=== PATIENT | male | born 1985 | race Caucasian/White ===

== ENCOUNTER 2017-07-19 13:27 | Emergency (ER) | payer BC, SELFPAY ==
[2017-07-19 13:40] VITALS: BMI 28.4
[2017-07-19 13:41] VITALS: BP 132/72; PULSE 93; RESP 18; TEMP 37.3; O2SAT 99; BMI 28.4
--- NOTE | 2017-07-19 13:45 | HMH.EDUTC ---
[facility] [place] Impression: Strep [place] Disposition: Home, Self-Care Condition on Discharge: Good Instructions: Strep Throat, DI for Strep Throat Additional Instructions: * Monitor Temp. Tylenol and/or Ibuprofen as needed. ER if fever is no less than 101 despite alternating Tylenol and Ibuprofen * Encourage fluids, water, Gatorade, powerade, pedialyte if /toddler/or child * Warm salt water gargles for throat irritation *Warm fluids *Sore throat lozenges *Sleep elevated *humidifier or vaporizer Lots of rest Increase fluids, water, Gatorade, powerade Follow up IMMEDIATELY for new or worsening of symptoms OR no noticeable improvement over the next 48-72 hours. 911 immediately for any life threatening symptoms such as chest pain or difficulty breathing Prescriptions: Azithromycin [Z-Patrick 250mg Tab] 250 mg PO UD DOSE PK #6 tab Azithromycin [Zithromax 250mg tab] 250 mg PO DIRECTED #6 tab Referrals: Shravan Sebastian MD [Primary Care Provider] - Forms: Work/School Release Time of Disposition: 13:50 Medical Decision Making - Medical Records Medical records reviewed: Yes: I reviewed the patient's medical records. Vital Signs: 07/19/17 13:41 Temperature 99.1 F Temperature Source Temporal Artery Scan Pulse Rate [Right Brachial] 93 H Respiratory Rate 18 Blood Pressure [Right Arm] 132/72 Blood Pressure Mean [Right Arm] 92 Blood Pressure Source [Right Arm] Automatic Cuff Blood Pressure Position [Right Arm] Sitting 02 Sat by Pulse Oximetry 99 Oxygen Delivery Method Room Air - Lab Data Lab results reviewed: Yes: I reviewed the patient's lab results. - Horacio Inquiry Pt receiving controlled substance: No Horacio was queried for this patient: No [facility] [place] - General Stated complaint: strep Throat Mode of Arrival: Family Vehicle Source of Information: Patient Limitations: No Limitations Description of Symptoms (Recalled from Triage Doc. by RN): C/O SORE THROAT HEENT Symptoms (Recalled from RN notes): Yes (SORE THROAT) Resp Symptoms (Recalled from RN notes): No Skin Symptoms (Recalled from RN notes): No MS Symptoms (Recalled from RN notes): No Functional Status (Recalled from RN notes): N/A - History of Present Illness Provider Complaint: Patient states that his son recently had strep throat and today he noticed that his throat was hurting and felt raw and irritated and felt like he had a fever State that he had to bring child and get checked so he was going to get checked too - Related Data Previous Rx's Medication Instructions Recorded Azithromycin [Z-Patrick 250mg Tab] 250 mg PO UD DOSE PK #6 tab 07/19/17 Azithromycin [Zithromax 250mg 250 mg PO DIRECTED #6 tab 07/19/17 tab] Allergies Allergy/AdvReac Type Severity Reaction Status Date / Time Penicillins [PENICILLINS] Allergy Unknown Verified 07/19/17 13:43 - Worker's Comp Is this a Worker's Comp case?: No H History I have reviewed the patient's past medical history: Yes - Social History Alcohol Intake: never - Psychiatric History Expresses thoughts of harming self/others: None Suicide Plan Description: No Plan ROS Obtained: Yes All systems reviewed & no additional complaints - ENT Ears, Nose, Mouth, and Throat: Reports sore throat Physical Exam - General General appearance: alert, in no apparent distress - Expanded ENT Exam Throat exam: Present: tonsillar erythema, tonsillar exudate - Respiratory Respiratory exam: Present: normal lung sounds bilaterally. Absent: respiratory distress - Cardiovascular Cardiovascular exam: Present: regular rate, normal rhythm. Absent: JVD - Abdominal Exam Abdominal exam: Present: soft, normal bowel sounds. Absent: distention, tenderness, guarding - Neurological Exam Neurological exam: Present: alert, oriented X3
--- NOTE | 2017-07-19 13:50 | ED_ITS ---
[facility] [place] Clinical Impression: Strep throat Disposition: Home, Self-Care Condition on Discharge: Good Instructions: Strep Throat, DI for Strep Throat Additional Instructions: * Monitor Temp. Tylenol and/or Ibuprofen as needed. ER if fever is no less than 101 despite alternating Tylenol and Ibuprofen * Encourage fluids, water, Gatorade, powerade, pedialyte if /toddler/or child * Warm salt water gargles for throat irritation *Warm fluids *Sore throat lozenges *Sleep elevated *humidifier or vaporizer Lots of rest Increase fluids, water, Gatorade, powerade Follow up IMMEDIATELY for new or worsening of symptoms OR no noticeable improvement over the next 48-72 hours. 911 immediately for any life threatening symptoms such as chest pain or difficulty breathing Prescriptions: Azithromycin [Z-Patrick 250mg Tab] 250 mg PO UD DOSE PK #6 tab Azithromycin [Zithromax 250mg tab] 250 mg PO DIRECTED #6 tab Referrals: Shravan Sebastian MD [Primary Care Provider] - Forms: Work/School Release Time of Disposition: 13:50 Medical Decision Making - Medical Records Medical records reviewed: Yes: I reviewed the patient's medical records. Vital Signs: 07/19/17 13:41 Temperature 99.1 F Temperature Source Temporal Artery Scan Pulse Rate [Right Brachial] 93 H Respiratory Rate 18 Blood Pressure [Right Arm] 132/72 Blood Pressure Mean [Right Arm] 92 Blood Pressure Source [Right Arm] Automatic Cuff Blood Pressure Position [Right Arm] Sitting 02 Sat by Pulse Oximetry 99 Oxygen Delivery Method Room Air - Lab Data Lab results reviewed: Yes: I reviewed the patient's lab results. - Horacio Inquiry Pt receiving controlled substance: No Horacio was queried for this patient: No [facility] [place]PI - General Stated complaint: strep Throat Mode of Arrival: Family Vehicle Source of Information: Patient Limitations: No Limitations Description of Symptoms (Recalled from Triage Doc. by RN): C/O SORE THROAT HEENT Symptoms (Recalled from RN notes): Yes (SORE THROAT) Resp Symptoms (Recalled from RN notes): No Skin Symptoms (Recalled from RN notes): No MS Symptoms (Recalled from RN notes): No Functional Status (Recalled from RN notes): N/A - History of Present Illness Provider Complaint: Patient states that his son recently had strep throat and today he noticed that his throat was hurting and felt raw and irritated and felt like he had a fever State that he had to bring child and get checked so he was going to get checked too - Related Data Previous Rx's Medication Instructions Recorded Azithromycin [Z-Patrick 250mg Tab] 250 mg PO UD DOSE PK #6 tab 07/19/17 Azithromycin [Zithromax 250mg 250 mg PO DIRECTED #6 tab 07/19/17 tab] Allergies Allergy/AdvReac Type Severity Reaction Status Date / Time Penicillins [PENICILLINS] Allergy Unknown Verified 07/19/17 13:43 - Worker's Comp Is this a Worker's Comp case?: No [facility] History I have reviewed the patient's past medical history: Yes - Social History Alcohol Intake: never - Psychiatric History Expresses thoughts of harming self/others: None Suicide Plan Description: No Plan ROS Obtained: Yes All systems reviewed & no additional complaints - ENT Ears, Nose, Mouth, and Throat: Reports sore throat Physical Exam - General General appearance: alert, in n
[2017-07-19 13:59] VITALS: BP 132/72; PULSE 93; RESP 18; TEMP 37.3; O2SAT 99
[2017-07-20 08:28] LABS: UTC Strep Screen (Rapid) Positive (Negative)
== END 2017-07-19 14:00 | disposition home or self-care (01) ==
PROVIDERS: Emergency Provider Nurse Practitioner; Family Provider Family Medicine; PCP Internal Medicine Adolescent Medicine
DX: J02.0 Streptococcal pharyngitis (principal); Z88.0 Allergy status to penicillin
CPT/HCPCS: 87880; 99202

== ENCOUNTER 2017-09-18 15:30 | Outpatient (RCR) | payer BC, SELFPAY ==
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
--- NOTE | 2017-08-26 11:36 | HMH.RHREAS ---
Rehab Reassessment Rehab OP Re-assessment Start: 08/26/17 11:29 Freq: Status: Active Protocol: Document 08/26/17 11:29 TEDDYCHARLES (Rec: 08/26/17 11:35 [email or web address] [id number]) Electronically Signed By Mundo Herring, PT 08/26/17 11:29 Rehab Re-assessment Subjective Subjective Pt reports improved neck and LBP @ 2-3/10 on VAS, and feels 40-50% better overall since I EVAL Objective Objective Notes AROM: C-SPINE FLX 0-50, EXT 0- 50, R SB 0-45, L SB 0-45, B ROT 0-60 L-SPINE FLX 0-90, EXT 0-40, B SB 0-35 MMT: B LE WFL, B UE WFL TTP: B UT 05/14, B LUMBAR PARA Assessment Progress Assessment Progressing as Expected Assessment Notes PT W/IMPROVED ROM, STRENGTH, AND TTP Patient goals met STG'S 10/14 LTG'S 08/16 Goals Not Met LTG'S 08/16 Plan Plan PT TO CONT. W/SKILLED P.T. TO MAKE FURTHER IMPROVEMENTS IN ROM, STRENGTH, AND TTP TO ALLOW FOR OPTIMAL FUNCTION. Frequency of Therapy 2X/WK Duration of therapy 2-4 WKS Time and Billing Re-Eval Time 15 Re-Eval Billing Units 1 PHYSICIAN CERTIFICATION: I certify the specified therapy services for Jim Ackerman are required, authorized, and reviewed every 30 days.
== END 2017-09-18 15:31 | disposition home or self-care (01) ==
LOC: PT 15:30
PROVIDERS: Family Provider Family Medicine; PCP Internal Medicine Adolescent Medicine; Visit Provider Nurse Practitioner Family
DX: M54.2 Cervicalgia (principal); M54.5 Low back pain
CPT/HCPCS: 97010; 97014; 97035; 97110; 97140; 97164; G0283

== ENCOUNTER → 2019-08-24 15:07 | Outpatient (CLI) | payer BC, SELFPAY ==
[2019-08-24 15:34] LABS: Basophils % 0.6 % (0.1-2.0); Eosinophils # 0.1 K/mm3 (0.0-0.4); Eosinophils % 0.8 % (0.1-12.0); Hematocrit 52.4 % (42.0-52.0); Hemoglobin 17.7 g/dL (14.1-18.0); Lymphocytes % 28.2 % (10-50); Mean Corpuscular HGB Conc 33.8 g/dL (31.8-35.4); Mean Corpuscular Hemoglobin 29.7 pg (27.0-31.2); Mean Corpuscular Volume 87.8 fl (80-94); Mean Platelet Volume 8.2 fl (7.4-10.4); Monocytes # 0.5 K/mm3 (0.1-1.0); Monocytes % 7.3 % (1.7-9.3); Neutrophils # 4.6 K/mm3 (1.8-7.8); Neutrophils % 63.2 % (37.0-80.0); Platelet Count 255 K/mm3 (142-424); Red Blood Count 5.97 M/mm3 (4.60-6.20); Red Cell Distribution Width 13.2 % (11.5-17.5); White Blood Count 7.2 K/mm3 (4.8-10.8)
[2019-08-24 17:05] LABS: Alanine Aminotransferase 33 U/L (12-78); Albumin Level 5.2 g/dl (3.5-5.0); Albumin/Globulin Ratio 1.7 (1.1-1.8); Alkaline Phosphatase 45 U/L (38-126); Amylase 49 U/L (30-110); Aspartate Amino Transferase 36 U/L (17-59); Bilirubin,Total 1.4 mg/dl (0.2-1.3); Blood Urea Nitrogen 19 mg/dl (9-20); Calcium 9.8 mg/dl (8.4-10.2); Carbon Dioxide 30 mmol/L (22.0-30.0); Chloride 94 mmol/L (98-107); Estimated Glomerular Filt Rate 78 ml/min (>60); GFR (African American) 94 ML/MIN (>60); Glucose 119 mg/dl (74-100); Lipase 66 U/L (23-300); Sodium 136 mmol/L (136-145); Total Protein,Serum 8.2 g/dl (6.3-8.2)
== END ==
PROVIDERS: Visit Provider Nurse Practitioner Family
DX: R10.84 Generalized abdominal pain (principal)
CPT/HCPCS: 36415; 80053; 82150; 83690; 85025

== ENCOUNTER → 2019-08-27 10:52 | Outpatient (CLI) | payer BC, SELFPAY ==
[2019-08-27 11:28] LABS: Adenovirus F 40/41, stool Not Detected (NotDetected); Astrovirus Not Detected (NotDetected); Campylobacter Not Detected (NotDetected); Clostridium Difficile A/B, PCR Not Detected (NotDetected); Cryptosporidium Not Detected (NotDetected); Cyclospora Cayetanesis Not Detected (NotDetected); Entamoeba histolytica Not Detected (NotDetected); Enteroaggregative E coli Not Detected (NotDetected); Enteropathogenic E coli Not Detected (NotDetected); Enterotoxigenic E coli Not Detected (NotDetected); Giardia lamblia Not Detected (NotDetected); Norovirus Not Detected (NotDetected); Plesimonas Shigalloides, PCR Not Detected (NotDetected); Rotavirus A Not Detected (NotDetected); Salmonella, PCR Not Detected (NotDetected); Sapovirus Not Detected (NotDetected); Shiga-like toxin E coli Not Detected (NotDetected); Shigella Enterovasive E coli Not Detected (NotDetected); Vibrio Cholerae Not Detected (NotDetected); Vibrio, PCR Not Detected (NotDetected); Yersinia Entercolitica, PCR Not Detected (NotDetected)
== END ==
PROVIDERS: Visit Provider Internal Medicine Adolescent Medicine
DX: K52.9 Noninfective gastroenteritis and colitis, unspecified (principal)
CPT/HCPCS: 87507

== ENCOUNTER → 2021-07-01 09:52 | Outpatient (CLI) | payer BC, SELFPAY ==
--- NOTE | 2021-07-01 09:58 | XR_ITS ---
FINAL REPORT CLINICAL HISTORY: neck pain FINDINGS: CERVICAL SPINE 5 views were obtained. There is no acute fracture. Alignment is normal. The disc spaces are preserved. IMPRESSION: No acute process. Reviewed, Interpreted and Dictated by Matthew Phillips MD Transcribed by Zenon Motley Authenticated by Matthew Phillips MD on 07/01/2021 11:17:09 AM [facility]
--- NOTE | 2021-07-01 10:00 | XR_ITS ---
FINAL REPORT CLINICAL HISTORY: knots in the top of the head FINDINGS: SKULL LESS THAN 4 VIEWS Four views were obtained. There is no acute fracture or dislocation. Bony alignment is normal. The visualized paranasal sinuses are clear. IMPRESSION: No acute bony abnormality. Reviewed, Interpreted and Dictated by Matthew Phillips MD Transcribed by Zenon Motley Authenticated by Matthew Phillips MD on 07/01/2021 11:17:26 AM [facility]
[2021-07-01 10:56] LABS: Basophils % 0.5 % (0.1-2.0); Eosinophils # 0.1 K/mm3 (0.0-0.4); Eosinophils % 1.3 % (0.1-12.0); Hemoglobin 16.1 g/dL (14.1-18.0); Lymphocytes # 1.7 K/mm3 (0.7-4.5); Lymphocytes % 34.1 % (10-50); Mean Corpuscular HGB Conc 34.9 g/dL (31.8-35.4); Mean Corpuscular Hemoglobin 31.1 pg (27.0-31.2); Mean Platelet Volume 7.8 fl (7.4-10.4); Monocytes # 0.3 K/mm3 (0.1-1.0); Monocytes % 5.4 % (1.7-9.3); Neutrophils % 58.7 % (37.0-80.0); Platelet Count 192 K/mm3 (142-424); Red Blood Count 5.16 M/mm3 (4.60-6.20); Red Cell Distribution Width 13.3 % (11.5-17.5); White Blood Count 5.1 K/mm3 (4.8-10.8)
[2021-07-01 11:31] LABS: Erythrocyte Sedimentation Rate 11 mm/hr (0-15)
[2021-07-01 12:03] LABS: Alanine Aminotransferase 46 U/L (12-78); Albumin Level 4.6 g/dl (3.5-5.0); Albumin/Globulin Ratio 2.1 (1.1-1.8); Alkaline Phosphatase 48 U/L (38-126); Anion Gap 10.2 mEq/L (5-15); Aspartate Amino Transferase 40 U/L (17-59); Bilirubin,Total 0.7 mg/dl (0.2-1.3); Blood Urea Nitrogen 14 mg/dl (9-20); Calcium 8.9 mg/dl (8.4-10.2); Carbon Dioxide 31 mmol/L (22.0-30.0); Chloride 102 mmol/L (98-107); Estimated Glomerular Filt Rate 97 ml/min (>60); GFR (African American) 117 ML/MIN (>60); Globulin 2.2 g/dL (1.3-3.2); Glucose 104 mg/dl (74-100); Potassium 4.2 mmoL/L (3.5-5.1); Sodium 139 mmol/L (136-145); Total Protein,Serum 6.8 g/dl (6.3-8.2)
[2021-08-11 20:54] LABS: Antinuclear Antibodies (ANA) Negative
== END ==
LOC: LAB 09:53
PROVIDERS: PCP Family Medicine; Visit Provider Specialist
DX: G44.89 Other headache syndrome (principal); R21 Rash and other nonspecific skin eruption; L72.9 Follicular cyst of the skin and subcutaneous tissue, unspecified; R80.9 Proteinuria, unspecified
CPT/HCPCS: 36415; 70250; 72050; 80053; 85025; 85651; 86038; 86225; 86235; 86618

== ENCOUNTER → 2021-07-13 07:58 | Outpatient (CLI) | payer BC, SELFPAY ==
--- NOTE | 2021-07-13 07:59 | MR_ITS ---
FINAL REPORT CLINICAL HISTORY: atypical headache. pt states that the top of his head is sensitive. painful to touch. nki. FINDINGS: Multiplanar MR imaging of the brain was performed without and with contrast. There is artifact from presumed dental hardware which obscures some detail anteriorly. There is no evidence of intracranial hemorrhage or mass. No abnormal extra-axial fluid collection is seen. The ventricular size is within normal limits. There is no evidence of shift of the midline structures. The posterior fossa and brainstem have an unremarkable appearance. Portions of diffusion weighted imaging are nondiagnostic. Remaining diffusion weighting imaging demonstrates no abnormal restriction. No abnormal contrast enhancement is seen. Normal major vessel vascular flow voids are noted. IMPRESSION: Portions of diffusion weighted imaging is nondiagnostic, otherwise no acute intracranial abnormality. Reviewed, Interpreted and Dictated by Abraham Okeefe III, MD Transcribed by Zenia Olsen Authenticated by Abraham Okeefe III, MD on 07/15/2021 08:57:57 AM [facility]
== END ==
PROVIDERS: PCP Family Medicine; Visit Provider Specialist
DX: G44.89 Other headache syndrome (principal)
CPT/HCPCS: 70553; 94762; A9576

== ENCOUNTER → 2021-07-31 11:44 | Outpatient (CLI) | payer BC, SELFPAY | PROVIDERS: PCP Family Medicine; Visit Provider Nurse Practitioner Family | DX: G47.34 Idiopathic sleep related nonobstructive alveolar hypoventilation (principal); R51.9 Headache, unspecified | CPT/HCPCS: G0399 ==

== ENCOUNTER 2021-09-13 16:00 | Outpatient (RCR) | payer BC, SELFPAY ==
--- NOTE | 2021-07-31 09:08 | HMH.PTOPEV ---
PT Outpatient Evaluation Rehab PT Outpatient Evaluation Start: 07/31/21 08:12 Freq: Status: Active Protocol: Document 07/31/21 08:12 PADMINI (Rec: 07/31/21 09:07 PADMINI [id number]) Electronically Signed By Tapan Sierra, MAGO 07/31/21 08:12 Outpatient Therapy Subjective History Subjective History This is the initial Physical Therapy evaluation for Jim Ackerman. Pt is a 36 y/o male referred to PT for c/o scalp pain and dysthesia. Pt reports long history of neck and low back pain but reports pain in crown of head began ~ 6-7 months ago. Pt reports insidious onset but did state he noticed the pressure after having COVID. Pt reprots he has constant pressure in crown of head but can increase into pain . Chief Complaint Pain,Other Symptom Type Ache,Other Symptoms Relieved By Nothing Symptoms Aggravated By Sitting,Bending/Stooping, Lifting Prior Functional Limitations None Current Functional Limitations Sleeping,Sitting,Recreation Activity Symptom Description Constant but Variable Level of pain today (0-10) 2 Pain scale - at its best (0-10) 1 Pain scale - at its worst (0-10) 5 Cervical Eval Palpation Cervical Muscles R Cervical Paraspinal,L Cervical Paraspinal,R Suboccipital,L Suboccipital,R CT Junction,L CT Junction Cervical/Thoracic Palpation Findings Tenderness,Trigger Point Passive Joint Mobility Cervical PIVM Inc: L C2/3 L C3/4 L C4/5 L C5/6 Dec: R AA AROM Cervical Spine Extension Active Range of 35 Motion (degrees) Cervical Spine Flexion Active Range of 60 Motion (degrees) Cervical Spine Right Lateral Flexion 45 Active Range of Motion (degrees) Cervical Spine Left Lateral Flexion 40 Active Range of Motion (degrees) Cervical Spine Right Rotation Active 60 Range of Motion (degrees) Cervical Spine Left Rotation Active 70 Range of Motion (degrees) Special Test C-Spine Foraminal Compression (Spurling) Negative Left,Negative Right Test C-Spine Foraminal Distraction Test Positive C-Spine Compressio
== END 2021-09-13 16:05 | disposition home or self-care (01) ==
LOC: PT 16:00
PROVIDERS: PCP Family Medicine; Visit Provider Specialist
DX: R51.9 Headache, unspecified (principal); R20.8 Other disturbances of skin sensation
CPT/HCPCS: 20560; 97010; 97012; 97014; 97035; 97110; 97163; 97164; G0283

== ENCOUNTER 2024-07-26 15:19 | Outpatient (CLI) | payer BC, SELFPAY ==
[2024-07-27 06:15] LABS: Chloride 105 mmol/L (98-107); Sodium 140 mmol/L (136-145)
[2024-07-27 06:16] LABS: Potassium 4.3 mmoL/L (3.5-5.1)
[2024-07-27 06:19] LABS: Anion Gap 10.3 mEq/L (5-15); Basophils % 0.4 % (0.1-2.0); Blood Urea Nitrogen 13 mg/dl (9-20); Carbon Dioxide 29 mmol/L (22.0-30.0); Creatinine Clearance Estimated 139 mL/min (50-200); Eosinophils # 0.1 K/mm3 (0.0-0.4); Estimated Glomerular Filt Rate 75 ml/min (>60); GFR (African American) 91 ML/MIN (>60); Glucose 79 mg/dl (74-100); Hematocrit 44.2 % (42.0-52.0); Hemoglobin 14.8 g/dL (14.1-18.0); Lymphocytes # 2.1 K/mm3 (0.7-4.5); Lymphocytes % 29.8 % (10-50); Mean Corpuscular HGB Conc 33.5 g/dL (31.8-35.4); Mean Corpuscular Volume 89.5 fl (80-94); Mean Platelet Volume 12.9 fl (7.4-10.4); Monocytes # 0.5 K/mm3 (0.1-1.0); Monocytes % 7.5 % (1.7-9.3); Neutrophils # 4.3 K/mm3 (1.8-7.8); Neutrophils % 60.9 % (37.0-80.0); Platelet Count 116 K/mm3 (142-424); Red Blood Count 4.94 M/mm3 (4.60-6.20); Red Cell Distribution Width 13.2 % (11.5-17.5); White Blood Count 7.1 K/mm3 (4.8-10.8)
== END 2024-07-26 23:59 | disposition home or self-care (01) ==
LOC: PREOP 15:21
PROVIDERS: Visit Provider Surgery
DX: Z01.812 Encounter for preprocedural laboratory examination (principal)
CPT/HCPCS: 80048; 85025

== ENCOUNTER 2024-08-01 06:04 | Day surgery (SDC) | payer BC, SELFPAY ==
[2024-07-26 16:05] VITALS: BMI 33.7
[2024-07-27 06:15] LABS: Chloride 105 mmol/L (98-107); Sodium 140 mmol/L (136-145)
[2024-07-27 06:16] LABS: Potassium 4.3 mmoL/L (3.5-5.1)
[2024-07-27 06:19] LABS: Anion Gap 10.3 mEq/L (5-15); Basophils % 0.4 % (0.1-2.0); Blood Urea Nitrogen 13 mg/dl (9-20); Carbon Dioxide 29 mmol/L (22.0-30.0); Creatinine Clearance Estimated 139 mL/min (50-200); Eosinophils # 0.1 K/mm3 (0.0-0.4); Estimated Glomerular Filt Rate 75 ml/min (>60); GFR (African American) 91 ML/MIN (>60); Glucose 79 mg/dl (74-100); Hematocrit 44.2 % (42.0-52.0); Hemoglobin 14.8 g/dL (14.1-18.0); Lymphocytes # 2.1 K/mm3 (0.7-4.5); Lymphocytes % 29.8 % (10-50); Mean Corpuscular HGB Conc 33.5 g/dL (31.8-35.4); Mean Corpuscular Volume 89.5 fl (80-94); Mean Platelet Volume 12.9 fl (7.4-10.4); Monocytes # 0.5 K/mm3 (0.1-1.0); Monocytes % 7.5 % (1.7-9.3); Neutrophils # 4.3 K/mm3 (1.8-7.8); Neutrophils % 60.9 % (37.0-80.0); Platelet Count 116 K/mm3 (142-424); Red Blood Count 4.94 M/mm3 (4.60-6.20); Red Cell Distribution Width 13.2 % (11.5-17.5); White Blood Count 7.1 K/mm3 (4.8-10.8)
[2024-08-01] VITALS (10 sets, daily range): BP systolic 126–175; BP diastolic 71–99; PULSE 55–84; RESP 16–18; TEMP 36.2–36.4; O2SAT 92–98
[2024-08-01] MEDS: LACTATED RINGERS 1000ML 1,000 ML 25 ML IV (06:32)
--- NOTE | 2024-08-01 06:48 | EXP.GEN.HP ---
HPI HPI HPI: Patient is a 39-year-old male who is a self-referral to the office for possible hernia and seen on 06/21/24. He states that recently he had been coughing and had a pain in his umbilical area. He has noticed a protrusion which comes and goes. He has what he describes as a light pain from it. [facility] Disclaimer: The information contained in this section may have been updated after the patient was seen, as this information can be updated by other users. Medical History Chronic headaches Surgical History (Updated 08/01/24 @ 06:18 by Leanne Gutierrez RN) H/O vasectomy History of nasal surgery Hx of wisdom tooth extraction Family History Other Cancer Social History (Updated 08/01/24 @ 06:18 by Leanne Gutierrez RN) Smoking Status: Never smoker alcohol intake: never substance use type: denies use current occupational status: employed Travel in the last 8 weeks: None household members: spouse and family housing: house Have you lived/traveled outside [place] in past 30 days?: No Contact w/someone who lives/traveled outside US past 30 days?: No Exposure to someone with infectious disease in past 14 days?: No Do you have a fever (greater than 100.4 F or 38 C)?: No Have you tested positive for COVID-19: No Exposed to someone with COVID-19 in past 14 days?: No Do you have a sore throat?: No Do you have a cough?: No Do you have any weakness?: No Are you experiencing any nausea/vomitting?: No Do you have any diarrhea?: No Are you experiencing any unusual bleeding?: No Do you have any muscle aches/pain?: No Do you have any abdominal pain?: No Are you experiencing loss of taste or smell?: No Other Medical History Have you received the Pneumonia Vaccine: No Meds Home Medications and Allergies Home Medications ?Medication ?Instructions ?Recorded ?Confirmed ?Type No Known Home Medications 05/10/21 08/01/24 History New Prescriptions to Start Prescriptions: Allergies Allergy/AdvReac Type Severity Reaction Status Date / Time Penicillins (PENICILLINS) Allergy Unknown Unknown Verified 08/01/24 06:15 allergy reaction Exam Data for Last 24 hours Vital signs and Labs for Last 24 Hours: Temp Pulse Resp BP Pulse Ox O2 Del Method 97.3 F L 55 L 18 128/71 98 Room Air 08/01/24 06:16 08/01/24 06:16 08/01/24 06:16 08/01/24 06:16 08/01/24 06:16 08/01/24 06:16 Constitutional Constitutional: no acute distress *Routine HEENT Exam Head: Present normocephalic Eye: Present EOMI and PERRL ENT: Present mucous membranes moist *Routine Neck Exam Neck: Present supple; Absent lymphadenopathy *Routine Respiratory Exam Respiratory: Present CTA bilaterally *Routine Cardiovascular Exam Cardiovascular: Present RRR *Routine Abdominal Exam Abdominal: Present soft and hernia; Absent tenderness Comments: Small umbilical hernia *Routine Rectal Exam Rectal:: deferred *Routine Genitalia Exam Genitalia:: deferred *Routine Extremities Exam Extremities: Absent cyanosis, clubbing or edema *Routine Skin Exam Skin: Present warm; Absent rash *Routine Neurological Exam Neurological: Present alert and oriented X3 Assessment and Plan *Assessment and plan (1) Umbilical hernia: Status: Acute Category: Medical Code(s): K42.9 - Umbilical hernia without obstruction or gangrene Plan Patient was noted to have a tiny umbilical hernia with a defect measuring several millimeters. Options were discussed and patient did wish to pursue repair despite the small size. Plan for open umbilical hernia repair
--- NOTE | 2024-08-01 06:50 | EXP.ANES.CKL ---
[facility] Disclaimer: The information contained in this section may have been updated after the patient was seen, as this information can be updated by other users. Medical History Chronic headaches Surgical History (Updated 08/01/24 @ 06:18 by Leanne Gutierrez RN) H/O vasectomy History of nasal surgery Hx of wisdom tooth extraction Family History Other Cancer Social History (Updated 08/01/24 @ 06:18 by Leanne Gutierrez RN) Smoking Status: Never smoker alcohol intake: never substance use type: denies use current occupational status: employed Travel in the last 8 weeks: None household members: spouse and family housing: house Have you lived/traveled outside US in past 30 days?: No Contact w/someone who lives/traveled outside US past 30 days?: No Exposure to someone with infectious disease in past 14 days?: No Do you have a fever (greater than 100.4 F or 38 C)?: No Have you tested positive for COVID-19: No Exposed to someone with COVID-19 in past 14 days?: No Do you have a sore throat?: No Do you have a cough?: No Do you have any weakness?: No Are you experiencing any nausea/vomitting?: No Do you have any diarrhea?: No Are you experiencing any unusual bleeding?: No Do you have any muscle aches/pain?: No Do you have any abdominal pain?: No Are you experiencing loss of taste or smell?: No [facility] Anesthesia Checklist Patient Identification Patient Identification: Arm Band and Family Structural Data Admitted From: Home Planned Operative Procedure/s: Open Umbilical Hernia Repair Consent for Planned Operative Procedure(s) Verified: Yes Verified Documents: Surgical Consent and History and Physical NPO Status Verified Time NPO: 00:00 Additional verifications Patient : No Anesthesia Reactions: No Hx Blood Transfusions: No Blood Transfusion Reaction: No Cephalosporin Allergy: Yes Previous Colonoscopy: No Airway Assessment Mallampati Score:: Class II C-Spine Mobility Assessed: Yes TMJ Mobility Assessed: Yes Dentition: Good Dentition Neurological Assessment Level of Consciousness: Awake, Alert, Appropriate and Follows Commands Hx Seizures: No Numbness or tingling in extremities: No Anesthesia Plan Anesthesia Risk discussed: Yes ASA Class: I Anesthesia Type: General
[2024-08-01] MEDS: CLINDAMYCIN PHOSPHATE/D5W 900 MG/50 ML PIGGYBACK 100 MG IV (06:57)
[2024-08-01] MEDS: ROPIVACAINE 0.5% 30ML VIAL 150 MG (07:20)
[2024-08-01] MEDS: LIDOCAINE 1% 20ML MDV 20 ML (07:20)
--- NOTE | 2024-08-01 07:53 | EXP.OP.NOTE ---
Date of procedure: 08/01/24 Pre-op Diagnosis:: Umbilical hernia Post-op Diagnosis:: Same Procedure performed:: Open repair of umbilical hernia with placement of small Bard Ventralex mesh Surgeon:: Abraham Barbour MD INFORMATION SYSTEMS COORDINATOR:: Lb Jackman Anesthesia: GETA Estimated blood loss (mL): 5 Operative findings:: He had a small umbilical hernia containing preperitoneal fat with a defect measuring about 4 mm. It was towards the superior umbilical area. Operative note:: Consent was obtained patient was taken to the operating room. He was given preoperative intravenous antibiotics. In the operating room he was placed in a supine position. General anesthesia was induced via endotracheal tube. Abdomen was prepped and draped in the standard surgical fashion. Hernia was palpated and found to be towards the superior aspect of the umbilicus. The defect was small. Supraumbilical incision was made and dissection was carried down through subcutaneous tissues to the hernia sac. Hernia sac was dissected free from surrounding subcutaneous tissues. Hernia sac was excised from the umbilical subdermis. It was opened. Extraneous peritoneum of the hernia sac was excised down to the fascia using electrocautery. Fascial edges were cleaned. Defect measured about 4 mm. Small sized Bard Ventralex mesh was inserted through the defect into the peritoneal cavity. It was elevated and the tails of the mesh were sutured superiorly and inferiorly to the fascial edge with 2-0 Prolene. Tails of the mesh were then cut flush with the fascia. Fascia was closed over the mesh with a single 0 Ethibond suture. Local anesthetic was infiltrated. There was good hemostasis. Umbilical dermis was reapproximated the underlying fascia with a couple of interrupted 2-0 Vicryl sutures. Subdermal tissues were then closed with several interrupted 2-0 Vicryl. Skin was closed with 4 Monocryl in a subcuticular fashion. Steri-Strips and dressings were applied. Condition: stable Disposition: PACU Complications:: None immediately apparent
--- NOTE | 2024-08-01 08:04 | P.PNANES_ITS ---
[facility] Anesthesia Record Part I Anesthesia Record I Intake, IV Amount: 950 Hydration: Adequate Estimated blood loss (mL): 5 Urine output (mL): 0 Blood Products used (#): none Blood Pressure: 150/99 SaO2: 92 Pulse Rate: 75 Airway Patency: Patent Respiratory Rate: 18 Temperature: 97.6 F Patient is:: Drowsy and Stable Stable to PACU at:: 07:59
--- NOTE | 2024-08-01 13:04 | P.PNANES_ITS ---
[facility] Anesthesia Record Part II Anesthesia Record Part II Discharge Time: 08:27 Destination: Surgical Day Care (OP Surgery) PACU nurse assessment reviewed?: Yes Patient Condition:: Good Anesthesia Complications:: None Swallowing reflex intact?: Yes Airway Patency: Patent Cyanosis?: No Blood Pressure: 127/73 SaO2: 96 Respiratory Rate: 16 Pulse Rate: 81 Temperature: 97.2 F Mental Status: Alert & Oriented Pain level:: 0 Nausea and/or vomitting:: None Intake, IV Amount: 0 Hydration: Adequate
== END 2024-08-01 09:00 | disposition home or self-care (01) ==
PROVIDERS: PCP Family Medicine; Visit Provider Surgery
PROC: (CPT 49592; principal; 2024-08-01 07:30)
DX: K42.9 Umbilical hernia without obstruction or gangrene (principal)
CPT/HCPCS: 49592; 96374; J3490; C1781; J0736; J1100; J2250; J2405; J3010; J7120